=== PATIENT | female | born 1985 | race Caucasian/White ===

== ENCOUNTER 2016-08-13 17:21 | Emergency (ER) | payer OTHER ==
[~2016-08-13] VITALS: Ht 170.2 cm; Wt 87.0 kg
[2016-08-13] MEDS ORDERED: BUPR-93 PO (18:06)
[2016-08-13 19:17] LABS: BASOPHILS % (AUTO) 0.3 % (0.0-2.0); EOSINOPHILS % (AUTO) 0.9 % (1.0-6.0); HEMATOCRIT 38.2 % (36-46); HEMOGLOBIN 12.9 g/dL (12.0-16.0); LYMPHOCYTES # (AUTO) 1.8 K/uL (1.0-4.8); LYMPHOCYTES % (AUTO) 16.7 % (22.0-44.0); MEAN CORPUSCULAR HEMOGLOBIN 30.9 pg (26.0-34.0); MEAN CORPUSCULAR HGB CONC 33.8 G/dL (31.0-37.0); MEAN CORPUSCULAR VOLUME 92 fL (80-100); MONOCYTES # (AUTO) 0.6 K/uL (0.1-1.0); MONOCYTES % (AUTO) 5.7 % (2.0-9.0); NEUTROPHILS # (AUTO) 8.2 K/uL (1.8-7.7); NEUTROPHILS % (AUTO) 76.4 % (40.0-70.0); PLATELET COUNT (AUTO) 285 K/uL (150-450); RED BLOOD CELL COUNT(AUTO) 4.18 MIL/uL (4.00-5.20); RED CELL DISTRIBUTION WIDTH 12.6 % (11.5-14.5); WHITE BLOOD COUNT (AUTO) 10.7 K/uL (4.5-11.0)
[2016-08-13 19:32] LABS: ANION GAP 7 mmol/L (8-16); CALCIUM, TOTAL 8.9 mg/dL (8.8-10.5); CARBON DIOXIDE 29 mmol/L (22-29); CHLORIDE 105 mmol/L (98-107); GLOMERULAR FILTR. RATE CALC > 60 mL/min (>60); POTASSIUM 3.8 mmol/L (3.5-5.1); SODIUM SERUM 141 mmol/L (136-145); UREA NITROGEN, BLOOD 14 mg/dL (7-18)
[2016-08-13 19:39] LABS: ALANINE AMINOTRANSFERASE 187 U/L (12-78); ALBUMIN 3.9 g/dL (3.4-5.0); ASPARTATE AMINOTRANSFERASE 376 U/L (15-37); BILIRUBIN,TOTAL 0.4 mg/dL (0.1-1.0); TOTAL PROTEIN, SERUM 7.6 g/dL (6.4-8.2)
[2016-08-13 19:55] LABS: APPEARANCE,URINE CLEAR (CLEAR); GLUCOSE, URINE (UA) NEGATIVE (NEGATIVE); KETONES,URINE NEGATIVE (NEGATIVE); LEUKOCYTE ESTERASE ,URINE SMALL (NEGATIVE); OCCULT BLOOD,URINE NEGATIVE (NEGATIVE); PROTEIN,URINE NEGATIVE (NEGATIVE)
[2016-08-13 19:59] LABS: ADD UA MICROSCOPIC YES; RBC,URINE 0-2 /HPF (0-2); SQUAMOUS EPITHELIAL CELL,UR Many /LPF (None Seen)
[2016-08-13] MEDS ORDERED: DONNATAL/LIDOCAINE/MAALOX 55 ML BOTTLE PO ONE (20:15)
[2016-08-13 20:51] LABS: INFLUENZA TYPE B NEGATIVE FOR TYPE B (NEGATIVE)
[2016-08-13 23:12] VITALS: BP 105/83
== END 2016-08-13 23:13 | disposition home or self-care (01) ==
LOC: EDSEX 17:23 → EMS 17:23
DX: K80.70 Calculus of gallbladder and bile duct without cholecystitis without obstruction (principal); K76.0 Fatty (change of) liver, not elsewhere classified
CPT/HCPCS: 36415; 76700; 80053; 81001; 84703; 85025; 87077; 87086; 87186; 87804; 99285; Z7610

== ENCOUNTER 2018-12-14 09:56 | Emergency (ER) | payer OTHER ==
[~2018-12-14] VITALS: Ht 165.1 cm; Wt 90.9 kg
[~2018-12-14 09:56] MED LIST: BUPR-93 PO
[2018-12-14] MEDS ORDERED: [UNRECOGNIZED DRUG - REMARK] PO (10:02)
[2018-12-14] MEDS ORDERED: DiphenhydrAMINE HCL 25 MG CAPSULE PO ONE (10:45)
[2018-12-14] MEDS ORDERED: PredniSONE 20 MG TABLET PO ONE (10:45)
[2018-12-14 11:29] VITALS: BP 121/81
== END 2018-12-14 11:49 | disposition home or self-care (01) ==
LOC: EMS 09:59
DX: T78.1XXA Other adverse food reactions, not elsewhere classified, initial encounter (principal); M79.89 Other specified soft tissue disorders; F32.9 Major depressive disorder, single episode, unspecified; X58.XXXA Exposure to other specified factors, initial encounter
CPT/HCPCS: 99283; J7512

== ENCOUNTER 2024-04-07 16:48 | Emergency (ER) | payer OTHER ==
[~2024-04-07] VITALS: Ht 165.1 cm; Wt 89.5 kg
[~2024-04-07 16:48] MED LIST changes: +BUPR-514 PO; -BUPR-93 PO; +[UNRECOGNIZED DRUG - REMARK] PO
[2024-04-07 16:52] VITALS: TEMP 98.4
[2024-04-07] MEDS ORDERED: FLUO40CA PO (16:53)
[2024-04-07] MEDS ORDERED: FLUT12AE20 PO (16:53)
[2024-04-07] MEDS ORDERED: BUPR-49 PO (16:53)
[2024-04-07] MEDS: MethylPREDNISolone SOD SUCC 125 MG/2 ML VIAL IVP ONE (18:35)
[2024-04-07] MEDS: DiphenhydrAMINE HCL 50 MG/ML VIAL IVP ONE (18:35)
[2024-04-07 19:37] VITALS: BP 132/80; PULSE 81; RESP 16; O2SAT 99
[2024-04-07] MEDS ORDERED: PRED-554 PO (19:52)
[2024-04-07] MEDS ORDERED: DIPH50CA37 PO (19:52)
== END 2024-04-07 20:21 | disposition home or self-care (01) ==
LOC: EMS 16:48
DX: T78.40XA Allergy, unspecified, initial encounter (principal); D50.9 Iron deficiency anemia, unspecified; F32.A Depression, unspecified; Z90.49 Acquired absence of other specified parts of digestive tract; Z98.84 Bariatric surgery status; Z98.890 Other specified postprocedural states
CPT/HCPCS: 99284; 96374; 96375; J1200; J2919